=== PATIENT | female | born 1935 | race Caucasian/White ===

== ENCOUNTER → 2018-01-03 | Outpatient (CLI) | payer MEDICARE | END | disposition home or self-care (01) | LOC: PETCFH 07:14 | PROVIDERS: ATTEND Dermatology | DX: J43.9 Emphysema, unspecified (principal); C43.4 Malignant melanoma of scalp and neck | CPT/HCPCS: 78816; A9552 ==

== ENCOUNTER → 2018-01-14 | Outpatient (CLI) | payer MEDICARE, OTHER | END | disposition home or self-care (01) | LOC: ROC 09:27 | PROVIDERS: ATTEND Radiology Radiation Oncology | DX: C43.9 Malignant melanoma of skin, unspecified (principal); J44.9 Chronic obstructive pulmonary disease, unspecified; Z85.118 Personal history of other malignant neoplasm of bronchus and lung | CPT/HCPCS: G0463 ==